=== PATIENT | male | born 1945 | race Hispanic/Latino ===

== ENCOUNTER 2017-10-23 08:10 | Inpatient (IN) | payer OTHER, MEDICARE ==
[~2017-10-23] VITALS: Ht 162.6 cm; Wt 64.0 kg
[2017-10-23 08:32] LABS: BASOPHILS % (AUTO) 0.7 % (0.0-5.0); HEMATOCRIT 24.8 % (42-54); LYMPHOCYTES % (AUTO) 9.7 % (21.0-51.0); MEAN CORPUSCULAR HEMOGLOBIN 29.3 pg (27.0-33.0); MEAN CORPUSCULAR HGB CONC 34.4 g/dL (32.0-36.0); MEAN CORPUSCULAR VOLUME 85.2 fL (79-99); MONOCYTES % (AUTO) 3.2 % (3.0-13.0); NEUTROPHILS % (AUTO) 86.4 % (40.0-77.0); PLATELET COUNT (AUTO) 225 K/uL (130-400); RED BLOOD CELL COUNT(AUTO) 2.92 MIL/uL (4.50-6.20); RED CELL DISTRIBUTION WIDTH 16.7 % (11.0-15.5); WHITE BLOOD COUNT (AUTO) 13.8 K/uL (4.8-10.8)
[2017-10-23] MEDS ORDERED: METOPROLOL TARTRATE 1 MG/ML 5ML VIAL IV ONE ×2 (08:36→08:50)
[2017-10-23 08:47] LABS: ABG BASE EXCESS 3.5 mmol/L (-2.0-3.0); ABG HCO3 27.3 mmol/L (21.0-28.0); ABG OXYGEN SATURATION 90.4 % (95.0-99.0); ABG PCO2 39 mmHg (35-48)
[2017-10-23] MEDS ORDERED: LEVOFLOXACIN 500 MG/D5W 100 ML 100 ML ONE (08:50)
[2017-10-23 08:53] LABS: INR 1.09 (0.85-1.15); PARTIAL THROMBOPLASTIN TIME 30.3 SEC (26.3-35.5); PROTHROMBIN TIME 11.4 SEC (9.6-11.6)
[2017-10-23] MEDS ORDERED: VANCOMYCIN 1GM+NS 250ML 250 ML IV ONE (09:11)
[2017-10-23 09:14] LABS: BILIRUBIN,TOTAL 0.5 mg/dL (0.2-1.0); CREATINE KINASE MB 10.5 ng/mL (0.5-3.6); CREATININE 4.2 mg/dL (0.5-1.5); POTASSIUM 3.3 mmol/L (3.5-5.1); TOTAL PROTEIN, SERUM 7.3 g/dL (6.0-8.3)
[2017-10-23] MEDS ORDERED: GUAIFENESIN-DM 200/20 MG 10 ML PO PRN (09:15)
[2017-10-23] MEDS ORDERED: LACTULOSE 20 GM/30 ML UDCUP PO PRN (09:15)
[2017-10-23] MEDS ORDERED: ONDANSETRON HCL 4 MG/2 ML VIAL IV PRN (09:15)
[2017-10-23] MEDS ORDERED: ACETAMINOPHEN 325 MG TAB PO PRN ×2 (09:15)
[2017-10-23] MEDS ORDERED: IPRATROPIUM/ALBUTEROL SULFATE 3 ML SOLUTION IH ONE ×3 (09:36→18:05)
[2017-10-23] MEDS: IPRATROPIUM/ALBUTEROL SULFATE 3 ML SOLUTION IH SCH ×4 (09:40→23:31)
[2017-10-23 10:01] LABS: B-TYPE NATRIURETIC PEPTIDE 4330 pg/mL (0-100)
[2017-10-23] MEDS ORDERED: ALBUMIN (HUMAN) 25% 100 ML IV PRN (16:30)
[2017-10-23] MEDS ORDERED: 0.9% SODIUM CHLORIDE 250 ML IV BAG IV PRN (16:30)
[2017-10-23] MEDS ORDERED: SODIUM CHLORIDE 0.9% 1000ML 1,000 ML IV PRN (16:30)
[2017-10-23] MEDS ORDERED: EPOETIN ALFA 2,000 UNIT/ML VIAL SQ NR (16:30)
[2017-10-23] MEDS ORDERED: HEPARIN SODIUM 5000UNIT/ML 1ML VIAL IJ PRN ×2 (16:30)
[2017-10-23] MEDS ORDERED: HEPARIN SODIUM 5000UNIT/ML 1ML VIAL ONE (17:41)
[2017-10-23] MEDS ORDERED: SODIUM CHLORIDE 0.9% 1000ML 1,000 ML IV ONE (17:41)
[2017-10-23] MEDS ORDERED: DILTIAZEM HCL 120 MG CAP.SR.24H PO ONE (17:56)
[2017-10-23 19:46] VITALS: BP 155/97
[2017-10-23] MEDS ORDERED: METOPROLOL TARTRATE 25 MG TAB PO SCH (21:00)
[2017-10-23] MEDS ORDERED: METOPROLOL TARTRATE 50 MG TAB PO SCH (21:00)
[2017-10-23] MEDS: APIXABAN 5 MG TABLET PO SCH (21:00)
[2017-10-23] MEDS ORDERED: APIXABAN 2.5 MG TABLET PO ONE (22:07)
[2017-10-23] MEDS: INSULIN GLARGINE 100 UNITS/ML 10 ML VIAL SQ SCH (22:20)
[2017-10-23] MEDS: FAMOTIDINE/PF 20 MG/2 ML VIAL IV SCH (22:22)
[2017-10-23 23:10] VITALS: BP 145/69
[2017-10-24 00:13] LABS: ABG BASE EXCESS 3.1 mmol/L (-2.0-3.0); ABG HCO3 25.1 mmol/L (21.0-28.0); ABG OXYGEN SATURATION 97.3 % (95.0-99.0); ABG PCO2 31 mmHg (35-48)
[2017-10-24] MEDS: IPRATROPIUM/ALBUTEROL SULFATE 3 ML SOLUTION IH SCH ×6 (02:10→22:42)
[2017-10-24 03:31] VITALS: BP 160/93
[2017-10-24 04:58] LABS: HEMATOCRIT 24.2 % (42-54); MEAN CORPUSCULAR HEMOGLOBIN 28.2 pg (27.0-33.0); MEAN CORPUSCULAR HGB CONC 33.4 g/dL (32.0-36.0); MEAN CORPUSCULAR VOLUME 84.6 fL (79-99); PLATELET COUNT (AUTO) 235 K/uL (130-400); RED BLOOD CELL COUNT(AUTO) 2.86 MIL/uL (4.50-6.20); RED CELL DISTRIBUTION WIDTH 16.3 % (11.0-15.5); WHITE BLOOD COUNT (AUTO) 12.9 K/uL (4.8-10.8)
[2017-10-24 05:13] LABS: CREATININE 3.5 mg/dL (0.5-1.5); POTASSIUM 3.9 mmol/L (3.5-5.1)
[2017-10-24] MEDS ORDERED: GLUCAGON 1MG KIT 1 MG ML IM PRN (05:45)
[2017-10-24 07:00] VITALS: BP 139/85
[2017-10-24] MEDS: INSULIN HUMULIN R 100 UNIT/ML 3ML SQ SCH ×4 (07:14→21:18)
[2017-10-24] MEDS: INSULIN GLARGINE 100 UNITS/ML 10 ML VIAL SQ SCH ×2 (07:16→22:11)
[2017-10-24 07:57] LABS: TROPONIN I 14.4 ng/mL (0.00-0.06)
[2017-10-24] MEDS: METOPROLOL TARTRATE 50 MG TAB PO SCH ×2 (09:21→22:32)
[2017-10-24] MEDS: FAMOTIDINE/PF 20 MG/2 ML VIAL IV SCH ×2 (09:21→22:32)
[2017-10-24] MEDS: ASPIRIN 81MG TAB.CHEW PO SCH (09:21)
[2017-10-24] MEDS: APIXABAN 5 MG TABLET PO SCH ×2 (09:22→22:40)
[2017-10-24 11:00] VITALS: BP 110/70
[2017-10-24 11:41] LABS: CREATINE KINASE MB 3.3 ng/mL (0.5-3.6)
[2017-10-24 11:56] LABS: TROPONIN I 13.71 ng/mL (0.00-0.06)
[2017-10-24 16:00] VITALS: BP 138/77
[2017-10-24] MEDS ORDERED: CLON0.1T PO (18:37)
[2017-10-24] MEDS ORDERED: METO-409 PO (18:37)
[2017-10-24] MEDS ORDERED: LINA5TAB PO (18:37)
[2017-10-24] MEDS ORDERED: FERR-82 PO (18:37)
[2017-10-24] MEDS ORDERED: DILT120T PO (18:37)
[2017-10-24] MEDS ORDERED: APIX5TAB4 PO (18:37)
[2017-10-24] MEDS ORDERED: FURO20TA6 PO (18:37)
[2017-10-24] MEDS ORDERED: ATOR10 PO (18:37)
[2017-10-24] MEDS ORDERED: FOLI0.8T2 PO (18:37)
[2017-10-24] MEDS ORDERED: GABA-529 PO (18:37)
[2017-10-24 19:39] VITALS: BP 124/73
[2017-10-24] MEDS ORDERED: APIXABAN 2.5 MG TABLET PO ONE (22:25)
[2017-10-24] MEDS: ATORVASTATIN CALCIUM 20 MG TABLET PO SCH (22:32)
[2017-10-24 23:25] VITALS: BP 116/75
[2017-10-25] MEDS: IPRATROPIUM/ALBUTEROL SULFATE 3 ML SOLUTION IH SCH ×2 (02:15→06:58)
[2017-10-25 03:23] VITALS: BP 118/76
[2017-10-25 05:12] LABS: HEMATOCRIT 21.9 % (42-54); MEAN CORPUSCULAR HEMOGLOBIN 29.1 pg (27.0-33.0); MEAN CORPUSCULAR HGB CONC 34.2 g/dL (32.0-36.0); MEAN CORPUSCULAR VOLUME 85.1 fL (79-99); PLATELET COUNT (AUTO) 225 K/uL (130-400); RED BLOOD CELL COUNT(AUTO) 2.58 MIL/uL (4.50-6.20); WHITE BLOOD COUNT (AUTO) 11.3 K/uL (4.8-10.8)
[2017-10-25 05:18] LABS: CREATININE 4.8 mg/dL (0.5-1.5); POTASSIUM 3.2 mmol/L (3.5-5.1)
[2017-10-25] MEDS: INSULIN HUMULIN R 100 UNIT/ML 3ML SQ SCH ×4 (06:12→21:00)
[2017-10-25] MEDS: INSULIN GLARGINE 100 UNITS/ML 10 ML VIAL SQ SCH ×2 (06:42→22:51)
[2017-10-25 07:33] VITALS: BP 123/80
[2017-10-25] MEDS: FAMOTIDINE/PF 20 MG/2 ML VIAL IV SCH ×2 (09:00→21:00)
[2017-10-25 11:10] VITALS: BP 131/61
[2017-10-25] MEDS: APIXABAN 5 MG TABLET PO SCH ×2 (11:10→21:43)
[2017-10-25] MEDS: ASPIRIN 81MG TAB.CHEW PO SCH (11:10)
[2017-10-25] MEDS: METOPROLOL TARTRATE 50 MG TAB PO SCH (11:16)
[2017-10-25] MEDS: IPRATROPIUM 0.5 MG/2.5 ML INH IH SCH ×3 (13:47→22:14)
[2017-10-25 16:09] VITALS: BP 131/88
[2017-10-25] MEDS ORDERED: EPOETIN ALFA 2,000 UNIT/ML VIAL SQ NR (16:30)
[2017-10-25 19:35] VITALS: BP 139/74
[2017-10-25] MEDS: ATORVASTATIN CALCIUM 20 MG TABLET PO SCH (21:43)
[2017-10-26] VITALS (7 sets, daily range): BP systolic 134–168; BP diastolic 77–90
[2017-10-26] MEDS: METOPROLOL TARTRATE 50 MG TAB PO SCH ×3 (00:41→20:26)
[2017-10-26] MEDS: IPRATROPIUM 0.5 MG/2.5 ML INH IH SCH ×6 (02:09→21:49)
[2017-10-26 03:54] LABS: HEMATOCRIT 25.9 % (42-54); MEAN CORPUSCULAR HEMOGLOBIN 27.7 pg (27.0-33.0); MEAN CORPUSCULAR HGB CONC 32.5 g/dL (32.0-36.0); MEAN CORPUSCULAR VOLUME 85.1 fL (79-99); PLATELET COUNT (AUTO) 268 K/uL (130-400); RED BLOOD CELL COUNT(AUTO) 3.04 MIL/uL (4.50-6.20); RED CELL DISTRIBUTION WIDTH 17.2 % (11.0-15.5); WHITE BLOOD COUNT (AUTO) 13.9 K/uL (4.8-10.8)
[2017-10-26 04:04] LABS: CREATININE 3.5 mg/dL (0.5-1.5); POTASSIUM 3.6 mmol/L (3.5-5.1)
[2017-10-26] MEDS: DEXTROSE 50%-WATER 50 ML DISP.SYRIN IV PRN (06:28)
[2017-10-26] MEDS: INSULIN HUMULIN R 100 UNIT/ML 3ML SQ SCH ×4 (06:56→20:54)
[2017-10-26] MEDS: INSULIN GLARGINE 100 UNITS/ML 10 ML VIAL SQ SCH ×2 (06:57→20:59)
[2017-10-26] MEDS: FAMOTIDINE/PF 20 MG/2 ML VIAL IV SCH ×2 (09:00→20:25)
[2017-10-26] MEDS: APIXABAN 5 MG TABLET PO SCH ×2 (09:00→20:28)
[2017-10-26] MEDS ORDERED: APIXABAN 2.5 MG TABLET PO ONE (10:53)
[2017-10-26] MEDS: ASPIRIN 81MG TAB.CHEW PO SCH (11:05)
[2017-10-26] MEDS: ATORVASTATIN CALCIUM 20 MG TABLET PO SCH (20:26)
[2017-10-27] VITALS (7 sets, daily range): BP systolic 128–167; BP diastolic 61–88
[2017-10-27] MEDS: IPRATROPIUM 0.5 MG/2.5 ML INH IH SCH ×6 (03:07→21:34)
[2017-10-27 04:33] LABS: CREATININE 4.8 mg/dL (0.5-1.5); POTASSIUM 3.4 mmol/L (3.5-5.1)
[2017-10-27 04:44] LABS: HEMATOCRIT 26.2 % (42-54); MEAN CORPUSCULAR HEMOGLOBIN 29.1 pg (27.0-33.0); MEAN CORPUSCULAR HGB CONC 34.1 g/dL (32.0-36.0); MEAN CORPUSCULAR VOLUME 85.5 fL (79-99); PLATELET COUNT (AUTO) 261 K/uL (130-400); RED BLOOD CELL COUNT(AUTO) 3.06 MIL/uL (4.50-6.20); RED CELL DISTRIBUTION WIDTH 16.7 % (11.0-15.5); WHITE BLOOD COUNT (AUTO) 13.6 K/uL (4.8-10.8)
[2017-10-27] MEDS: INSULIN HUMULIN R 100 UNIT/ML 3ML SQ SCH ×4 (06:14→21:00)
[2017-10-27] MEDS: DEXTROSE 50%-WATER 50 ML DISP.SYRIN IV PRN (06:42)
[2017-10-27] MEDS: INSULIN GLARGINE 100 UNITS/ML 10 ML VIAL SQ SCH ×2 (07:30→22:18)
[2017-10-27] MEDS: METOPROLOL TARTRATE 50 MG TAB PO SCH ×3 (09:43→22:17)
[2017-10-27] MEDS: APIXABAN 5 MG TABLET PO SCH ×2 (09:43→22:17)
[2017-10-27] MEDS: ASPIRIN 81MG TAB.CHEW PO SCH (09:43)
[2017-10-27] MEDS: FAMOTIDINE/PF 20 MG/2 ML VIAL IV SCH (09:43)
[2017-10-27] MEDS ORDERED: REGADENOSON 0.4 MG/5 ML PF SYG IVP SCH (11:15)
[2017-10-27] MEDS: ATORVASTATIN CALCIUM 20 MG TABLET PO SCH (22:16)
[2017-10-28] MEDS: IPRATROPIUM 0.5 MG/2.5 ML INH IH SCH ×6 (02:01→22:18)
[2017-10-28] MEDS: DEXTROSE 50%-WATER 50 ML DISP.SYRIN IV PRN (03:34)
[2017-10-28 03:46] VITALS: BP 142/79
[2017-10-28 04:26] LABS: HEMATOCRIT 25.2 % (42-54); MEAN CORPUSCULAR HEMOGLOBIN 29.2 pg (27.0-33.0); MEAN CORPUSCULAR HGB CONC 34.1 g/dL (32.0-36.0); MEAN CORPUSCULAR VOLUME 85.6 fL (79-99); PLATELET COUNT (AUTO) 226 K/uL (130-400); RED BLOOD CELL COUNT(AUTO) 2.94 MIL/uL (4.50-6.20); RED CELL DISTRIBUTION WIDTH 17.1 % (11.0-15.5); WHITE BLOOD COUNT (AUTO) 11.3 K/uL (4.8-10.8)
[2017-10-28 04:32] LABS: CREATININE 5.7 mg/dL (0.5-1.5); POTASSIUM 3.1 mmol/L (3.5-5.1)
[2017-10-28] MEDS ORDERED: HEPARIN SODIUM 5000UNIT/ML 1ML VIAL IJ PRN (06:15)
[2017-10-28] MEDS: INSULIN HUMULIN R 100 UNIT/ML 3ML SQ SCH ×4 (06:51→21:00)
[2017-10-28] MEDS: INSULIN GLARGINE 100 UNITS/ML 10 ML VIAL SQ SCH ×2 (06:52→21:47)
[2017-10-28 07:00] VITALS: BP 123/83
[2017-10-28] MEDS: ASPIRIN 81MG TAB.CHEW PO SCH (09:47)
[2017-10-28] MEDS: APIXABAN 5 MG TABLET PO SCH ×2 (09:47→21:45)
[2017-10-28] MEDS: FAMOTIDINE 20MG TAB 20 MG TAB PO SCH (09:47)
[2017-10-28] MEDS: METOPROLOL TARTRATE 50 MG TAB PO SCH ×3 (09:47→21:45)
[2017-10-28] MEDS: EPOETIN ALFA 2,000 UNIT/ML VIAL SQ SCH (09:48)
[2017-10-28 10:54] VITALS: BP 122/78
[2017-10-28 16:05] VITALS: BP 113/90
[2017-10-28 19:11] VITALS: BP 129/92
[2017-10-28] MEDS: DIGOXIN 250 MCG/ML 2ML AMP IV SCH (21:44)
[2017-10-28] MEDS: ATORVASTATIN CALCIUM 20 MG TABLET PO SCH (21:45)
[2017-10-28 23:26] VITALS: BP 135/84
[2017-10-29] MEDS: IPRATROPIUM 0.5 MG/2.5 ML INH IH SCH ×6 (01:24→21:30)
[2017-10-29] MEDS: DIGOXIN 250 MCG/ML 2ML AMP IV SCH ×3 (03:26→16:55)
[2017-10-29 03:30] VITALS: BP 138/93
[2017-10-29 04:15] LABS: HEMATOCRIT 25.2 % (42-54); MEAN CORPUSCULAR HEMOGLOBIN 28.6 pg (27.0-33.0); MEAN CORPUSCULAR HGB CONC 33.6 g/dL (32.0-36.0); MEAN CORPUSCULAR VOLUME 85.3 fL (79-99); PLATELET COUNT (AUTO) 220 K/uL (130-400); RED BLOOD CELL COUNT(AUTO) 2.95 MIL/uL (4.50-6.20); RED CELL DISTRIBUTION WIDTH 17.4 % (11.0-15.5); WHITE BLOOD COUNT (AUTO) 8.3 K/uL (4.8-10.8)
[2017-10-29 04:35] LABS: CREATININE 4.1 mg/dL (0.5-1.5); POTASSIUM 3.5 mmol/L (3.5-5.1)
[2017-10-29] MEDS: INSULIN HUMULIN R 100 UNIT/ML 3ML SQ SCH ×4 (05:44→21:00)
[2017-10-29] MEDS: INSULIN GLARGINE 100 UNITS/ML 10 ML VIAL SQ SCH ×2 (05:49→21:09)
[2017-10-29 08:00] VITALS: BP 163/78
[2017-10-29] MEDS: ASPIRIN 81MG TAB.CHEW PO SCH (09:10)
[2017-10-29] MEDS: FAMOTIDINE 20MG TAB 20 MG TAB PO SCH (09:10)
[2017-10-29] MEDS: APIXABAN 5 MG TABLET PO SCH ×2 (09:10→21:10)
[2017-10-29] MEDS: METOPROLOL TARTRATE 50 MG TAB PO SCH ×2 (11:52→21:10)
[2017-10-29 12:00] VITALS: BP 165/90
[2017-10-29 16:00] VITALS: BP 179/65
[2017-10-29 20:00] VITALS: BP 176/73
[2017-10-29] MEDS: ATORVASTATIN CALCIUM 20 MG TABLET PO SCH (21:10)
[2017-10-30] VITALS (7 sets, daily range): BP systolic 98–172; BP diastolic 46–72
[2017-10-30] MEDS: IPRATROPIUM 0.5 MG/2.5 ML INH IH SCH ×6 (02:01→22:06)
[2017-10-30] MEDS: INSULIN HUMULIN R 100 UNIT/ML 3ML SQ SCH ×4 (06:01→20:31)
[2017-10-30] MEDS: INSULIN GLARGINE 100 UNITS/ML 10 ML VIAL SQ SCH ×2 (06:52→20:46)
[2017-10-30] MEDS: METOPROLOL TARTRATE 50 MG TAB PO SCH ×2 (09:00→20:31)
[2017-10-30] MEDS: FAMOTIDINE 20MG TAB 20 MG TAB PO SCH (09:20)
[2017-10-30] MEDS: ASPIRIN 81MG TAB.CHEW PO SCH (09:20)
[2017-10-30] MEDS: APIXABAN 5 MG TABLET PO SCH ×2 (09:20→20:30)
[2017-10-30] MEDS: ATORVASTATIN CALCIUM 20 MG TABLET PO SCH (20:30)
[2017-10-30] MEDS: EPOETIN ALFA 2,000 UNIT/ML VIAL SQ SCH (20:31)
[2017-10-31 04:00] VITALS: BP 156/78
[2017-10-31] MEDS: IPRATROPIUM 0.5 MG/2.5 ML INH IH SCH ×3 (04:21→10:16)
[2017-10-31] MEDS: INSULIN HUMULIN R 100 UNIT/ML 3ML SQ SCH ×2 (06:15→11:30)
[2017-10-31] MEDS: INSULIN GLARGINE 100 UNITS/ML 10 ML VIAL SQ SCH (06:16)
[2017-10-31 07:20] VITALS: BP 119/55
[2017-10-31] MEDS: APIXABAN 5 MG TABLET PO SCH (08:48)
[2017-10-31] MEDS: METOPROLOL TARTRATE 50 MG TAB PO SCH (08:48)
[2017-10-31] MEDS: FAMOTIDINE 20MG TAB 20 MG TAB PO SCH (08:48)
[2017-10-31] MEDS: ASPIRIN 81MG TAB.CHEW PO SCH (08:48)
[2017-10-31 11:27] VITALS: BP 168/72
== END 2017-10-31 12:10 | DRG 280 ==
LOC: EDH 08:10 → EDHIP 09:12 → 2DH 18:05
PROVIDERS: ADMIT Family Medicine; ATTEND Family Medicine
PROC: 5A1D70Z Performance of Urinary Filtration, Intermittent, Less than 6 Hours Per Day (ICD-10-PCS; principal; 2017-10-23)
PROC: 5A1D70Z Performance of Urinary Filtration, Intermittent, Less than 6 Hours Per Day (ICD-10-PCS; 2017-10-25)
PROC: 5A1D70Z Performance of Urinary Filtration, Intermittent, Less than 6 Hours Per Day (ICD-10-PCS; 2017-10-28)
PROC: 5A1D70Z Performance of Urinary Filtration, Intermittent, Less than 6 Hours Per Day (ICD-10-PCS; 2017-10-30)
DX: I13.2 Hypertensive heart and chronic kidney disease with heart failure and with stage 5 chronic kidney disease, or end stage renal disease (principal); I21.4 Non-ST elevation (NSTEMI) myocardial infarction; N18.6 End stage renal disease; D68.59 Other primary thrombophilia; E11.22 Type 2 diabetes mellitus with diabetic chronic kidney disease; E11.65 Type 2 diabetes mellitus with hyperglycemia; I31.3 Pericardial effusion (noninflammatory); I50.33 Acute on chronic diastolic (congestive) heart failure; I69.351 Hemiplegia and hemiparesis following cerebral infarction affecting right dominant side; R47.01 Aphasia; I48.1 Persistent atrial fibrillation; M19.90 Unspecified osteoarthritis, unspecified site; D63.1 Anemia in chronic kidney disease; I48.2 Chronic atrial fibrillation; I50.9 Heart failure, unspecified; E78.00 Pure hypercholesterolemia, unspecified; E78.5 Hyperlipidemia, unspecified; I25.2 Old myocardial infarction; Z79.01 Long term (current) use of anticoagulants; Z99.2 Dependence on renal dialysis; Z87.01 Personal history of pneumonia (recurrent); Z83.3 Family history of diabetes mellitus
CPT/HCPCS: 36415; 36600; 70450; 71045; 78452; 80048; 80053; 82550; 82553; 82803; 82948; 83874; 83880; 84484; 85025; 85027; 85610; 85730; 87040; 87186; 87804; 90935; 93005; 93306; 94640; 94664; 97039; 99291; A9500; J0885; J1160; J1644; J1815; J1956; J2785; J3370; J3490; J7030; J7070

== ENCOUNTER → 2018-07-10 | Outpatient (CLI) | payer OTHER, MEDICARE ==
[~2018-07-10] MED LIST: APIX5TAB4 PO; ATOR10 PO; CLON0.1T PO; DILT120T PO; FERR-82 PO; FOLI0.8T2 PO; FURO20TA6 PO; GABA-529 PO; LINA5TAB PO; METO-409 PO
== END | disposition home or self-care (01) ==
LOC: SHCH 09:25
PROVIDERS: ATTEND Internal Medicine Cardiovascular Disease
DX: I31.3 Pericardial effusion (noninflammatory) (principal)
CPT/HCPCS: 93306

== ENCOUNTER → 2019-08-04 | Outpatient (CLI) | payer OTHER, MEDICARE ==
[~2019-08-04] MED LIST changes: +ALBUTEROL SULFATE 0.083% 2.5 MG/3 ML INH IH ONE
--- NOTE | 2019-08-04 16:22 | NUR ---
Unable to determine patient comprehension. Addendum: 08/04/19 at 1623 by KOJO AN Amended: Links added.
== END | disposition home or self-care (01) ==
LOC: RESP 10:12
PROVIDERS: ATTEND Internal Medicine Cardiovascular Disease
DX: J44.9 Chronic obstructive pulmonary disease, unspecified (principal); I48.0 Paroxysmal atrial fibrillation; Z79.899 Other long term (current) drug therapy
CPT/HCPCS: 94060; 94729